=== PATIENT | female | born 1950 | race American Indian/Alaskan Native ===

== ENCOUNTER 2017-04-20 13:59 | Outpatient (CLI) | payer OTHER ==
--- NOTE | 2017-04-20 15:53 | Mammography Report ---
BONE DEXA:04/20/17 CLINICAL: Postmenopausal. No comparison. TECHNIQUE: Two site bone DEXA performed on an Hologic scanner. FINDINGS: The average BMD of the lumbar spine L1-L4 is 0.837g/cm squared with a T-score of -1.9 and a Z-score of -0.9.Moderate levoscoliosis. The average BMD of the left hip is 0.851g/cm squared with a T-score of -0.7 and a Z-score of -0.2. IMPRESSION: 1. WHO classification: Osteopenia with increased fracture risk based on lumbar spine measurements. 2. WHO classification: Normal with average fracture risk based on left hip measurements. 3. The FRAX 10 year fracture probability for a major osteoporotic fracture is 3.4%. 4. The FRAX 10 year fracture probability for hip fracture is 0.2%. Note: FRAX version 3.01. Fracture probability calculated for an untreated patient. Fracture probability may be lower if the patient has received treatment. RECOMMENDATION: Clinical correlation and routine screening. DEFINITIONS: BMD = Bone Mineral Density T-score = BMD related to mean peak bone mass of young adult (mean expressed in Standard Deviation) Z-score = Age matched BMD expressed in SD World Health Organization (WHO) Diagnostic Criteria Normal T-score > -1 SD Osteopenia T-score between -1 and -2.4 SD Osteoporosis T-score -2.5 SD or below NOTE: BMD is not the only risk factor for fracture; also consider factors such as the patient's age, risk of falling, previous osteoporotic fracture, family history of osteoporotic fractures, current smoker, and low body weight. All treatment decisions require clinical judgment and consideration of individual patient factors, including patient preferences, comorbidities, previous drug use and risk factors not captured in the FRAX model (e.g. frailty, falls, vitamin D deficiency, increased bone turnover, interval significant decline in BMD). Fracture probability is calculated for an untreated patient. Fracture probability may be lower if the patient has received treatment. Z-scores are not calculated if >80 years of age.
== END 2017-04-20 14:00 | disposition home or self-care (01) ==
LOC: MAMMO 13:59
PROVIDERS: ATTEND Obstetrics & Gynecology
DX: M81.0 Age-related osteoporosis without current pathological fracture (principal); M85.88 Other specified disorders of bone density and structure, other site; Z78.0 Asymptomatic menopausal state
CPT/HCPCS: 77080

== ENCOUNTER 2019-11-27 14:26 | Outpatient (CLI) | payer MEDICARE ==
--- NOTE | 2019-11-27 15:37 | Mammography Report ---
BONE DEXA CLINICAL: Postmenopausal. COMPARISON: 04/20/2017 TECHNIQUE: [2] site bone DEXA performed on an Hologic scanner. FINDINGS: The average BMD of the lumbar spine L1-L4 is 0.849g/cm squared with a T score of -1.8 and a Z score o f -0.6. This compares to 0.837g/cm squared on the last exam and represents a +1.4 % change from the [ previous] baseline. Levoscoliosis. The average BMD of the left hip is 0.870 g/cm squared with a T score of -0.6and a Z score of 0. This compares to 0.851 g/cm squared on the last exam and represents a +2.2 % change from the [previous] ba seline. IMPRESSION: 1. WHO classification: Osteopenia with increased fracture risk based on spine measurements. 2. WHO classification normal with average fracture risk based on left hip measurements. 3. A modest improvement in both spine and left hip BMD compared to the previous exam. 4. The FRAX 10 year fracture probability for a major osteoporotic fracture is 3.6%. 5. The FRAX 10 year fracture probability for hip fracture is 0.3 % RECOMMENDATION: Clinical correlation and routine screening. Definitions: BMD equal bone mineral density T score = BMD related to peak bone mass of young adult ([place] expressed an standard deviation) Z score = age-matched BMD expressed in SD World health organization (WHO) diagnostic criteria Normal T score greater than equal to 1 standard deviation Osteopenia T score between -1 and -2.4 standard deviation Osteoporosis T score -2.5 standard deviation or below. Note: BMD is not the only risk factor for fracture; also consider factors such as the patient's age, risk of falling, previous osteoporotic fracture, family history of osteoporotic fractures, current sm oker and low body weight. Z scores are not calculated if greater than 80 years of age. Signer Name: Isaac Fu MD Signed: 11/27/2019 3:33 PM Workstation Name: [id number]
== END 2019-11-27 14:27 | disposition home or self-care (01) ==
LOC: MAMMO 14:26
PROVIDERS: ATTEND Family Medicine
DX: M85.88 Other specified disorders of bone density and structure, other site (principal); Z13.820 Encounter for screening for osteoporosis
CPT/HCPCS: 77080